=== PATIENT | male | born 1975 | race American Indian/Alaskan Native ===

== ENCOUNTER 2020-10-02 17:22 | Emergency (ER) | payer SELFPAY ==
[2020-10-02 17:30] VITALS: BP 132/75
--- NOTE | 2020-10-02 17:37 | Emergency Department Report ---
Blank Doc - Documentation Documentation: This is a 45-year-old male that presents with chest pains. This initial assessment/diagnostic orders/clinical plan/treatment(s) is/are subject to change based on patient's health status, clinical progression and re- assessment by fellow clinical providers in the ED. Further treatment and workup at subsequent clinical providers discretion. Patient/guardians urged not to elope from the ED as their condition may be serious if not clinically assessed and managed. Initial orders include: 1- Patient sent to [facility] for further evaluation and treatment 2- cardiac workup
[2020-10-02 18:14] LABS: Basophils # (Auto) 0.1 K/mm3 (0.0-0.1); Basophils % (Auto) 0.7 % (0.0-1.8); Eosinophils # (Auto) 0.2 K/mm3 (0.0-0.4); Eosinophils % (Auto) 2.3 % (0.0-4.3); Hematocrit 43.2 % (35.5-45.6); Hemoglobin 14.9 gm/dl (11.8-15.2); Lymphocytes # (Auto) 2.6 K/mm3 (1.2-5.4); Lymphocytes % (Auto) 30.2 % (13.4-35.0); Mean Corpuscular HGB Conc 35 % (32-34); Mean Corpuscular Volume 101 fl (84-94); Monocytes # (Auto) 0.8 K/mm3 (0.0-0.8); Monocytes % (Auto) 9.5 % (0.0-7.3); Platelet Count 326 K/mm3 (140-440); Red Cell Distribution Width 14.4 % (13.2-15.2)
[2020-10-02 18:24] LABS: INR 0.94 (0.87-1.13)
[2020-10-02 18:25] LABS: Partial Thromboplastin Time 26.5 Sec. (24.2-36.6)
[2020-10-02 18:39] LABS: Alanine Aminotransferase 18 units/L (7-56); BUN/Creatinine Ratio 8; Blood Urea Nitrogen 9 mg/dL (9-20); Calcium 9.5 mg/dL (8.4-10.2); Hemolysis Index 10
--- NOTE | 2020-10-02 18:44 | XRay Report ---
CHEST 2 VIEWS INDICATION / CLINICAL INFORMATION: Chest Pain. COMPARISON: None available. FINDINGS: SUPPORT DEVICES: None. HEART / MEDIASTINUM: The heart size and pulmonary vasculature are normal. The aorta is normal in shazia gavin. LUNGS / PLEURA: There is a small bulla or bleb in the left lung apex. No acute parenchymal or pleural abnormality. No pneumothorax. ADDITIONAL FINDINGS: No significant additional findings. IMPRESSION: No acute findings. Signer Name: Landon Staley MD Signed: 10/02/2020 6:40 PM Workstation Name: [id number]
[2020-10-02] MEDS ORDERED: ONDANSETRON 4 MG ODT TAB PO ONE (20:40)
[2020-10-02] MEDS ORDERED: ASPIRIN EC 325 MG TAB PO ONE (20:40)
[2020-10-02] MEDS ORDERED: ALUM-MAG HYDROXIDE-SIMETHICONE 200-200-20MG/5ML ORAL LIQD 30 ML PO ONE (20:40)
[2020-10-02] MEDS ORDERED: LIDOCAINE VISCOUS 2% 15 ML ORAL LIQD PO ONE (20:40)
[2020-10-02] MEDS ORDERED: DICYCLOMINE 20 MG/2 ML INJ IM ONE (20:41)
[2020-10-02] MEDS ORDERED: FAMOTIDINE 20 MG TAB PO ONE (20:41)
[2020-10-02 23:09] LABS: Bilirubin,Urine NEG (Negative); Blood,Urine NEG (Negative); Color,Urine Yellow (Yellow); Mucus,Urine FEW /HPF; Protein,Urine <15 mg/dL mg/dL (Negative)
--- NOTE | 2020-10-02 23:09 | Emergency Department Report ---
ED Abdominal Pain HPI - General Chief Complaint: Chest Pain Stated Complaint: ABD PAIN Time Seen by Provider: 10/02/20 17:37 Source: patient Mode of arrival: Ambulatory Limitations: No Limitations - History of Present Illness Initial Comments: Patient is a 45-year-old -Spanish male with no past medical history who presents to the ED with complaint of acute onset persistent severe epigastric pain that radiates to the substernal chest wall for the last 1 week, worse in the last 2 days. Patient states that the pain is worse with food or any mo vement or palpation of the epigastric area. Patient states that he has been taking [id number] Pepto-Bismol medication with no relief. Patient also complains of rectal bleeding for the last 6 weeks although he states that he is not sure whether it is from Pepto-Bismol usage or not. Patient states that he has not been evaluated by any GI physician due to this complaint. Patient denies fever, chills, shortness of breath, dizziness, syncope, vomiting, diarrhea, hematemesis, hemoptysis, hematochezia, constipation, dysuria, urinary frequency and urgency, palpitation or change in vision and fever and chills. MD Complaint: abdominal pain -: Sudden, week(s) (1) Location: epigastric Radiation: chest (substernal) Migration to: epigastric Severity: severe Severity scale (0 -10): 8 Quality: aching, sharp Consistency: constant Improves With: nothing Worsens With: eating, movement Associated Symptoms: denies other symptoms, nausea. denies: vomiting, diarrhea, fever, chills, constipation, dysuria, hematemesis, hematochezia, melena, hematuria, anorexia, syncope, other Treatments Prior to Arrival: NSAIDs - Related Data Previous Rx's Medication Instructions Recorded Last Taken Type Dicyclomine [Bentyl] 20 mg PO Q6H PRN #30 tablet 10/02/20 Unknown Rx Famotidine [Pepcid] 20 mg PO BID #60 tablet 10/02/20 Unknown Rx Omeprazole 40 mg PO DAILY #60 capsule. 10/02/20 Unknown Rx Ondansetron [Zofran Odt] 4 mg PO Q6HR PRN #15 tab.rapdis 10/02/20 Unknown Rx Allergies Allergy/AdvReac Type Severity Reaction Status Date / Time Penicillins Allergy Unknown Verified 10/02/20 17:30 ED Review of Systems ROS: Stated complaint: ABD PAIN Other details as noted in HPI Constitutional: denies: chills, fever Eyes: denies: eye pain, eye discharge, vision change ENT: denies: ear pain, throat pain Respiratory: denies: cough, shortness of breath, wheezing Cardiovascular: chest pain (anterior substernal chest pain). denies: palpitations Endocrine: no symptoms reported Gastrointestinal: abdominal pain (epigastric pain), nausea. denies: vomiting, diarrhea Genitourinary: denies: urgency, dysuria Musculoskeletal: denies: back pain, joint swelling, arthralgia Skin: denies: rash, lesions Neurological: denies: headache, weakness, paresthesias Psychiatric: denies: anxiety, depression Hematological/Lymphatic: denies: easy bleeding, easy bruising ED Past Medical Hx - Past Medical History Previous Medical History?: No - Surgical History Past Surgical History?: No - Social History Smoking Status: Never Smoker Substance Use Type: None - Medications Home Medications: Home Medications Medication Instructions Recorded Confirmed Last Taken Type Dicyclomine [Bentyl] 20 mg PO Q6H PRN #30 tablet 10/02/20 Unknown Rx Famotidine [Pepcid] 20 mg PO BID #60 tablet 10/02/20 Unknown Rx Omeprazole 40 mg PO DAILY #60 capsule.dr 10/02/20 Unknown Rx Ondansetron [Zofran Odt] 4 mg PO Q6HR PRN #15 tab.rapdis 10/02/20 Unknown Rx ED Physical Exam - General Limitations: No Limitations General appearance: alert, in no apparent distress - Head Head exam: Present: atraumatic, normocephalic, normal inspection - Eye Eye exam: Present: normal appearance, PERRL, EOMI Pupils: Present: normal accommodation - ENT ENT exam: Present: normal exam, normal orophraynx, mucous membranes moist, TM's normal bilaterally, normal external ear exam - Neck Neck exam: Present: normal inspection, full ROM - Respiratory Respiratory exam: Present: normal lung sounds bilaterally. Absent: respiratory distress, wheezes, rales, stridor, chest wall tenderness, accessory muscle use, decreased breath sounds, prolonged expiratory - Cardiovascular Cardiovascular Exam: Present: regular rate, normal rhythm, normal heart sounds. Absent: systolic murmur, diastolic murmur, rubs, gallop - GI/Abdominal GI/Abdominal exam: Present: soft, tenderness (Palpable epigastric tenderness), normal bowel sounds. Absent: guarding, rebound, hyperactive bowel sounds, hypoactive bowel sounds, organomegaly - Extremities Exam Extremities exam: Present: normal inspection, full ROM, normal capillary refill - Back Exam Back exam: Present: normal inspection, full ROM. Absent: tenderness, CVA tenderness (R), CVA tenderness (L), muscle spasm, paraspinal tenderness - Neurological Exam Neurological exam: Present: alert, oriented X3, CN II-XII intact, normal gait, reflexes normal - Psychiatric Psychiatric exam: Present: normal affect, normal mood - Skin Skin exam: Present: warm, dry, intact, normal color. Absent: rash ED Course Vital Signs 10/02/20 10/03/20 17:30 01:42 Temperature 98 F Pulse Rate 80 62 Respiratory 18 16 Rate Blood Pressure 132/75 [Right] O2 Sat by Pulse 96 17 L Oximetry ED Medical Decision Making - Lab Data Result diagrams: 10/02/20 18:05 10/02/20 17:37 - EKG Data EKG shows normal: sinus rhythm Rate: normal - EKG Data Interpretation: normal EKG 10/02/20 23:09 EKG shows normal sinus rhythm with a ventricular rate of 68 bpm, no ST or T wave abnormalities - Radiology Data Radiology results: report reviewed, image reviewed Findings [address] [address] XRay Report Signed Patient: MARIANO PHOENIX MR#: [id number] : 1975 Acct:[id number] Age/Sex: 45 / M ADM Date: 10/02/20 Loc: ED Attending Dr: Ordering Physician: NOLAN SIMMS NP Date of Service: 10/02/20 Procedure(s): XR chest routine 2V Accession Number(s): [id number] cc: NOLAN SIMMS NP Fluoro Time In Minutes: CHEST 2 VIEWS INDICATION / CLINICAL INFORMATION: Chest Pain. COMPARISON: None available. FINDINGS: SUPPORT DEVICES: None. HEART / MEDIASTINUM: The heart size and pulmonary vasculature are normal. The aorta is normal in caliber. LUNGS / PLEURA: There is a small bulla or bleb in the left lung apex. No acute parenchymal or pleural abnormality. No pneumothorax. ADDITIONAL FINDINGS: No significant additional findings. IMPRESSION: No acute findings. Signer Name: Landon Staley MD Signed: 10/02/2020 6:40 PM Workstation Name: [id number] Transcribed By: RT Dictated By: Landon Staley MD Electronically Authenticated By: Landon Staley MD Signed Date/Time: 10/02/201839 DD/ 37 TD/TT: - Medical Decision Making This is a 45-year-old -Spanish male with no past medical history who presents to the ED with complaint of acute onset persistent severe epigastric pain that radiates to the substernal chest wall for the last 1 week, worse in the last 2 days. Patient states that the pain is worse with food or any movement or palpation of the epigastric area. Patient states that he has been taking [id number] Pepto-Bismol medication with no relief. Patient also complains of rectal bleeding for the last 6 weeks although he states that he is not sure whether it is from Pepto-Bismol usage or not. Patient states that he has not been evaluated by any GI physician due to this complaint. In the ED, patient is alert and oriented x3 and is not in distress. Lab test results were reviewed and are all nonactionable including initial and 3-hour troponin levels. EKG shows normal sinus rhythm with a ventricular rate of [address] or T wave abnormalities. Chest x-ray shows no acute cardiopulmonary abnormalities or pneumonitis. Patient's heart score is 1 and is PERC negative per Wells criteria. Patient was treated with antacids in the ER. On reevaluation, sydnee ent's pain resolved with medications. Patient was discharged home on antacids and given a referral to the GI physicians Dr. Nelson Boss for further evaluation. Patient was advised to also follow-up with his primary care physician in 7 to 10 days for reevaluation. Patient is advised return to the ED immediately if symptoms get worse. - Differential Diagnosis GERD; Peptic ulcer; gastritis; ACS; Esophagitis Critical care attestation.: If time is entered above; I have spent that time in minutes in the direct care of this critically ill patient, excluding procedure time. ED Disposition Clinical Impression: Acute epigastric pain, Acute nonspecific chest pain with low risk of coronary artery disease GERD (gastroesophageal reflux disease) Qualifiers: Esophagitis presence: without esophagitis Qualified Code(s): K21.9 - Gastro- esophageal reflux disease without esophagitis Acute gastritis without hemorrhage Qualifiers: Gastritis type: other gastritis Qualified Code(s): K29.00 - Acute gastritis without bleeding Disposition: - TO HOME OR SELFCARE Is pt being admited?: No Does the pt Need Aspirin: No Condition: Stable Instructions: Chest Pain (ED) Additional Instructions: Your symptoms are likely due to acid reflux or possibly gastric ulcer. Therefore take medications with food as advised, follow-up with a GI physician Dr. Boss as advised. Consider following up with your primary care physician in 7 to 10 days for reevaluation or return to the ED immediately if symptoms get worse. Prescriptions: Dicyclomine [Bentyl] 20 mg PO Q6H PRN #30 tablet PRN Reason: Abdominal pain Omeprazole 40 mg PO DAILY #60 capsule. Famotidine [Pepcid] 20 mg PO BID #60 tablet Ondansetron [Zofran Odt] 4 mg PO Q6HR PRN #15 tab.rapdis PRN Reason: Nausea Referrals: NELSON BOSS MD [Staff Physician] - 3-5 Days [facility] [Provider Group] - 3-5 Days Forms: Work/School Release Form(ED) Time of Disposition: 23:12 Print Language: TURKMEN
== END 2020-10-03 01:42 | disposition home or self-care (01) ==
LOC: ED 17:22
DX: K21.9 Gastro-esophageal reflux disease without esophagitis (principal); K29.00 Acute gastritis without bleeding; Z88.0 Allergy status to penicillin
CPT/HCPCS: 36415; 71046; 80053; 81001; 84484; 85025; 85610; 85730; 93005; 96372; 99284; J0500; Q0162

== ENCOUNTER 2021-02-01 19:35 | Emergency (ER) | payer SELFPAY ==
[2021-02-01] MEDS ORDERED: DIPHtheria,PERTUSSIS(ACELL),TETANUS VACCINE/PF 0.5 ML VIAL IM ONE (19:47)
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
[2021-02-01 20:37] LABS: Basophils # (Auto) 0.1 K/mm3 (0.0-0.1); Basophils % (Auto) 1.4 % (0.0-1.8); Eosinophils # (Auto) 0.4 K/mm3 (0.0-0.4); Eosinophils % (Auto) 3.8 % (0.0-4.3); Hematocrit 46.3 % (35.5-45.6); Lymphocytes # (Auto) 4.1 K/mm3 (1.2-5.4); Lymphocytes % (Auto) 42.6 % (13.4-35.0); Mean Corpuscular HGB Conc 35 % (32-34); Mean Corpuscular Volume 100 fl (84-94); Monocytes # (Auto) 0.8 K/mm3 (0.0-0.8); Monocytes % (Auto) 8.4 % (0.0-7.3); Platelet Count 273 K/mm3 (140-440); Red Blood Count 4.63 M/mm3 (3.65-5.03); Red Cell Distribution Width 15.2 % (13.2-15.2)
[2021-02-01] MEDS ORDERED: HYDROmorphone 2 MG/1 ML INJ IV ONE (20:41)
[2021-02-01 20:46] LABS: INR 0.84 (0.87-1.13)
[2021-02-01] MEDS ORDERED: BACITRACIN ZINC OINT 28.4 GM TP PRN (20:47)
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
[2021-02-01] MEDS: NEOMY 3.5 MG/BACIT 400 UNITS/POLY B 5000 UNITS/GM OINT PACKET TP ONE ×2 (21:08→22:11)
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
[2021-02-01 21:19] LABS: Alanine Aminotransferase 20 units/L (7-56); Albumin 4.5 g/dL (3.9-5); BUN/Creatinine Ratio 9; Blood Urea Nitrogen 9 mg/dL (9-20); Calcium 9.4 mg/dL (8.4-10.2); Hemolysis Index 7
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
[2021-02-01] MEDS ORDERED: HYDROmorphone 1 MG/1 ML INJ IV ONE ×2 (22:05→22:28)
[2021-02-01] MEDS ORDERED: ONDANSETRON 4 MG ODT TAB PO ONE (23:40)
[2021-02-01 23:47] VITALS: BP 146/93
== END 2021-02-01 23:48 | disposition home or self-care (01) ==
LOC: ED 19:35
DX: S00.81XA Abrasion of other part of head, initial encounter (principal); S70.211A Abrasion, right hip, initial encounter; S80.212A Abrasion, left knee, initial encounter; S50.819A Abrasion of unspecified forearm, initial encounter; S60.519A Abrasion of unspecified hand, initial encounter; S50.319A Abrasion of unspecified elbow, initial encounter; S09.90XA Unspecified injury of head, initial encounter; F17.200 Nicotine dependence, unspecified, uncomplicated; Z79.899 Other long term (current) drug therapy; Z88.0 Allergy status to penicillin; V49.49XA Driver injured in collision with other motor vehicles in traffic accident, initial encounter; Y93.89 Activity, other specified; Y92.488 Other paved roadways as the place of occurrence of the external cause; Y99.8 Other external cause status
CPT/HCPCS: 29125; 36415; 70450; 71250; 72125; 73090; 73130; 73560; 74176; 80053; 85025; 85610; 90471; 90715; 96374; 96376; 99285; A6250; J1170; Q0162